=== PATIENT | female | born 1995 | race Caucasian/White ===

== ENCOUNTER → 2019-07-11 | Outpatient (CLI) | payer OTHER ==
[2019-07-11 13:09] LABS: Basophils % (A) 0 %; Eosinophils # (A) 0.1 k/uL (0-0.7); Eosinophils % (A) 1 %; HCT 42.9 % (34.0-46.0); HGB 14.7 gm/dL (11.4-16.0); Lymphocytes # (A) 3.4 k/uL (1.0-4.8); Lymphocytes % (A) 40 %; MCH 32.6 pg (25.0-35.0); MCHC 34.1 g/dL (31.0-37.0); MCV 95.5 fL (80.0-100.0); Mean Platelet Volume 8.5; Monocytes # (A) 0.4 k/uL (0-1.0); Monocytes % (A) 4 %; Neutrophils # (A) 4.5 k/uL (1.3-7.7); Neutrophils % (A) 53 %; Platelet Count 267 k/uL (150-450); RDW 11.7 % (11.5-15.5); WBC 8.6 k/uL (3.8-10.6)
[2019-07-11 18:51] LABS: Chol/HDL Ratio 2.92; LDL Cholesterol,Calculated 98.6 mg/dL (0.0-131.0); VLDL Calculation 16.4 mg/dL (5.00-40.00)
[2019-07-11 18:59] LABS: T4, Free (Free Thyroxine) 1.3 ng/dL (0.80-1.80)
[2019-07-11 20:31] LABS: Hemoglobin A1C 5.3 % (4.0-6.0)
== END | disposition home or self-care (01) ==
LOC: LABWHC1 12:17
PROVIDERS: ATTEND Family Medicine
DX: Z00.00 Encounter for general adult medical examination without abnormal findings (principal); E61.1 Iron deficiency
CPT/HCPCS: 36415; 80061; 83036; 83540; 84439; 84443; 85025

== ENCOUNTER 2020-08-03 09:12 | Outpatient (CLI) | payer OTHER ==
[2020-08-03 10:14] LABS: Appearance,Urine Clear (Clear); Bilirubin,Urine Negative (Negative); Blood,Urine Negative (Negative); Color,Urine Yellow; Glucose,Urine (UA) Negative (Negative); Ketones,Urine Negative (Negative); Leukocyte Esterase,Urine Negative (Negative); Nitrite,Urine Negative (Negative); PH, Urine 6.5 (5.0-8.0); Protein,Urine Trace (Negative); Specific Gravity,Urine 1.022 (1.001-1.035); Urobilinogen,Urine <2.0 mg/dL (<2.0)
[2020-08-03] MEDS: LACTATED RINGERS 1,000 ML IV SCH ×2 (10:16→11:18)
[2020-08-03 10:36] VITALS: BP 124/72; PULSE 111; RESP 18; TEMP 97.7
[2020-08-03] MEDS: TERBUTALINE 1 MG/ML VIAL SQ PRN ×2 (11:19→11:34)
--- NOTE | 2020-09-14 15:17 | P.MSEPDOC ---
Presenting Problems - Arrival Data Date of Arrival on Unit: 08/03/20 Time of Arrival on Unit: 09:12 Mode of Transport: Ambulatory - Complaint OB-Reason for Admission/Chief Complaint: Possible Onset of Labor Medical History - Information : 1 Para: 0 Term: 0 : 0 Abortions: Spontaneous or Elective: 0 Number of Living Children: 0 - Gestational Age Gestational Age by JAROD (wks/days): 32 Weeks and 4 Days Review of Systems - Review of Systems Constitutional: No problems Breast: No problems ENT: No problems Cardiovascular: No problems Respiratory: No problems Gastrointestinal: No problems Genitourinary: No problems Musculoskeletal: No problems Neurological: No problems Skin: No problems Vital Signs - Temperature Temperature: 97.7 F Temperature Source: Oral - Pulse Right Supine Brachial Pulse Rate: 111 Pulse Assessment Method: Automatic Cuff - Respirations Respiratory Rate: 18 Oxygen Delivery Method: Room Air O2 Sat by Pulse Oximetry: 97 - Blood Pressure Right Arm Supine Blood Pressure: 124/72 Blood Pressure Mean: 89 Blood Pressure Source: Automatic Cuff Medical Screen Scoring (Pre) - Cervical Exam Dilation: 1-3 cm = 1 Membranes: Intact - Uterine Contractions Frequency: < 36 weeks = 6 Duration: > 40 seconds = 2 - Maternal Vital Signs Maternal Temperature: N/A Maternal Blood Pressure: N/A Signs of Preeclampsia: N/A Maternal Respirations: N/A - Maternal Trauma Maternal Trauma: N/A - Assessment - Baby A Baseline FHR: 135 Heart Rate - NICHD Category: Category I (Normal) = 0 NST: Reactive Position: N/A - Total Score - Baby A Total Score - Baby A: 9 - Total Score - Baby B Total Score - Baby B: 9 - Total Score - Baby C Total Score - Baby C: 9 - Level of Risk - Baby A Level of Risk - Baby A: Medium (6-9) - Level of Risk - Baby B Level of Risk - Baby B: Medium (6-9) - Level of Risk - Baby C Level of Risk - Baby C: Medium (6-9) Physician Notification (Pre) - Physician Notified Physician Notified Date: 08/03/20 Physician Notified Time: 09:47 New Order Received: Yes - Notification Comment Comment: Dr Arnold in Department, gave orders for FFN, IV bolus and UA. Call with results Medical Screen Scoring (Post) - Cervical Exam Dilation: Exam Deferred Effacement: Exam Deferred Membranes: Intact - Uterine Contractions Frequency: > 5 minutes apart = 1 - Maternal Vital Signs Maternal Temperature: N/A Maternal Blood Pressure: N/A Signs of Preeclampsia: N/A Maternal Respirations: N/A - Maternal Trauma Maternal Trauma: N/A - Assessment - Baby A Heart Rate: 130 Heart Rate - NICHD Category: Category I (Normal) = 0 NST: Reactive - Total Score Total Score - Baby A: 1 Total Score - Baby B: 1 Total Score - Baby C: 1 - Post Treatment Level of Risk Post Treatment Level of Risk - Baby A: Low (0-5) Post Treatment Level of Risk - Baby B: Low (0-5) Post Treatment Level of Risk - Baby C: Low (0-5) Physician Notification (Post) - Physician Notified Physician Notified Date: 08/03/20 Physician Notified Time: 12:00 Physician/Practitioner Notified:: Dr Arnold Spoke With: [place] New Order Received: Yes - Notification Comment Comment: Discharge to home on modified bed rest with pelvic rest and to make appt for thursday with office for follow up if possible Disposition - Disposition OB Disposition: Discharge to home Discharge Date: 08/03/20 Discharge Time: 12:08 I agree with the RN Medical Screening Exam: Yes Physician's MSE Comment: Patient was not examined by myself Case reviewed; plan agreed upon as documented in EMR&OBIX.: Yes Diagnosis: OTHER SPECIFIED COMPLICATIONS OF LABOR AND DELIVERY
== END 2020-08-03 12:00 | disposition home or self-care (01) ==
LOC: FBPOP 09:12
PROVIDERS: ATTEND Obstetrics & Gynecology Obstetrics
DX: O26.893 Other specified pregnancy related conditions, third trimester (principal); Z3A.32 32 weeks gestation of pregnancy
CPT/HCPCS: 59025; 99214; 96360; 96361; 96372; 82731; 81003; J3105

== ENCOUNTER 2020-08-03 16:45 | Outpatient (CLI) | payer OTHER ==
[2020-08-03 18:29] VITALS: BP 123/75; PULSE 88; RESP 16; TEMP 98.6
--- NOTE | 2020-08-03 18:29 | US ---
EXAMINATION TYPE: US OB TV Cervical Measurement DATE OF EXAM: 08/03/2020 COMPARISON: NONE REASON FOR EXAM: Per Ordering Physician?this transvaginal scan is to assess the CERVICAL LENGTH for i ncompetence or funneling. GESTATIONAL AGE / DATING Physician Established: (32 weeks/4 days) EDC: 09/24/2020 MATERNAL/ SURVEY CERVICAL LENGTH (transvaginal: norm> 2.5cm): 1.6 cm Ultrasound evidence of shortened cervix? Yes HEART RATE: 154 bpm RHYTHM: Normal IMPRESSION: 1.6 cm cervical length.
[2020-08-03] MEDS ORDERED: BETAMET ACET-BETAMETH SOD PHOS 6 MG/ML MDV IM SCH (19:45)
[2020-08-03] MEDS ORDERED: MAGNESIUM SULFATE-WATER PMX 4 GM in WATER FOR INJECTION 1 100ML.BAG IVPB ONE (20:01)
[2020-08-03] MEDS ORDERED: MAGNESIUM SULFATE-WATER PMX 20 GM in WATER FOR INJECTION 1 500ML.BAG IV SCH (20:15)
[2020-08-03] MEDS ORDERED: LACTATED RINGERS 1,000 ML IV SCH (20:15)
--- NOTE | 2020-08-03 20:26 | P.HPOB ---
History of Present Illness H&P Date: 08/03/20 Chief Complaint: Contractions This is a 24-year-old 1 para 0 woman with an estimated due date of 09/24/2020 based on LMP consistent with first trimester ultrasound. She presents at 32-4/7 weeks' gestation with complaints of contractions. This initially began at approximately 3 AM. She presented to labor and delivery triage at approximately 9 AM this morning. She was found to be irregularly nasrin and her cervix was reported as 1 cm dilated and thick. She had IV fluids, terbutaline and a negative fibronectin test. Her contractions did decrease and she was discharged home for follow-up. She reports presented several hours later with ongoing and worsening contractions. Upon initial evaluation this afternoon her cervix remained unchanged however she was nasrin every 2-5 minutes uncomfortably. Oral hydration was initiated and she underwent a cervical length ultrasound which revealed cervix measuring 1.6 cm. Infant in the non-vertex presentation. She did make cervical change to 2 cm dilated, 100% effaced with a bulging lower segment. No presenting part. She was initiated on magnesium sulfate tocolyse this and given an initial dose of betamethasone. Arrangements are made for transport to higher level of nursery care. External monitoring reveals reassuring heart rate pattern for gestational age. She is irregularly nasrin within the ear herbal pattern approximately every 3-10 minutes. She denies any leakage of fluids, vaginal bleeding, nausea, vomiting, fevers, chills, headaches, visual changes, constipation or diarrhea. She has not had recent intercourse or trauma of any kind. Review of the patient's online (no hard copy available) record shows blood type A+, antibody screen negative, rubella immune, VDRL nonreactive, hepatitis B surface antigen negative, HIV negative, gonorrhea and chlamydia cultures negative, 1 hour GTT 125. She received a Tdap Vaccine on 07/12/2020. Review of Systems All systems: negative Past Medical History Past Medical History: No Reported History History of Any Multi-Drug Resistant Organisms: None Reported Additional Past Surgical History / Comment(s): Tonsils and adenoidectomy, with some teeth removal Past Anesthesia/Blood Transfusion Reactions: No Reported Reaction Past Psychological History: No Psychological Hx Reported Smoking Status: Never smoker Past Drug Use History: None Reported Medications and Allergies Home Medications Medication Instructions Recorded Confirmed Type Ascorbic Acid [Vitamin C] 500 mg PO DAILY 08/03/20 08/03/20 History L.acidoph,Paracasei, B.lactis 1 each PO DAILY 08/03/20 08/03/20 History [Probiotic] Methylphenidate HCl [Concerta] 54 mg PO DAILY 08/03/20 08/03/20 History Omeprazole 20 mg PO DAILY 08/03/20 08/03/20 History Pnv No.95/Ferrous Fum/Folic AC 1 each PO DAILY 08/03/20 08/03/20 History [ Multivitamin Tablet] Allergies Allergy/AdvReac Type Severity Reaction Status Date / Time No Known Allergies Allergy Verified 08/03/20 17:20 Exam Vital Signs Temp Pulse Resp BP 08/03/20 17:00 98.6 F 88 16 123/75 Intake and Output 08/03/20 08/03/20 08/03/20 06:59 14:59 22:59 Other: Weight 92.079 kg This is a pleasant, somewhat uncomfortable-appearing female in no acute distress. HEENT exam is unremarkable with no palpable lymphadenopathy or thyromegaly. The heart is a regular rate and rhythm and the lungs are clear to auscultation bilaterally. The abdomen is gravid, soft and nontender with fundal height consistent with gestational age. She has no CVA tenderness. She has trace lower extremity edema with no erythema the lower extremities. On pelvic examination the cervix is 2 cm dilated 100% effaced with bulging low uterine segment intense membranes. No presenting part is palpable. Bedside ultrasound transvaginal reveals non-vertex presentation and a cervical length of 1.6 cm. Assessment and Plan (1) 32 weeks gestation of Current Visit: Yes Status: Acute Code(s): Z3A.32 - 32 WEEKS GESTATION OF SNOMED Code(s): 7344839 (2) labor Current Visit: Yes Status: Acute Code(s): O60.00 - LABOR WITHOUT DELIVERY, UNSPECIFIED TRIMESTER SNOMED Code(s): 2038101 (3) Breech presentation Current Visit: Yes Status: Acute Code(s): O32.1XX0 - MATERNAL CARE FOR BREEC H PRESENTATION, UNSP SNOMED Code(s): 7341715 (4) Short cervix Current Visit: Yes Status: Acute Code(s): N88.3 - INCOMPETENCE OF CERVIX UTERI SNOMED Code(s): 665566253 Plan: 24-year-old 1 para 0 woman at 32-4/7 weeks' gestation with labor. She's been initiated on 4 g loading dose of magnesium sulfate with 2 g maintenance dose. She has received her first dose of betamethasone. The case is discussed with the maternal medicine attending physician at [place], [place]. They are accepting the transfer, . The patient and the father of the baby were counseled. Risks of transfer include possible progression of labor while in transport although I believe she is stable for transfer. Risks of remaining here level II nursery care and need for emergent transfer of the . Consent is obtained for transport and arrangements made. CBC is pending from lab and will be sent to the accepting facility. Hard copy of records will be forwarded when available to accepting facility.
[2020-08-03 20:31] LABS: Basophils # (A) 0.1 k/uL (0-0.2); Basophils % (A) 0 %; Eosinophils % (A) 0 %; HCT 38.8 % (34.0-46.0); HGB 13.4 gm/dL (11.4-16.0); Lymphocytes # (A) 1.3 k/uL (1.0-4.8); Lymphocytes % (A) 8 %; MCH 31.6 pg (25.0-35.0); MCHC 34.6 g/dL (31.0-37.0); MCV 91.4 fL (80.0-100.0); Mean Platelet Volume 9.3; Monocytes # (A) 0.5 k/uL (0-1.0); Monocytes % (A) 3 %; Neutrophils # (A) 14.4 k/uL (1.3-7.7); Neutrophils % (A) 88 %; Platelet Count 193 k/uL (150-450); RBC 4.24 m/uL (3.80-5.40); RDW 12.7 % (11.5-15.5); WBC 16.4 k/uL (3.8-10.6)
== END 2020-08-03 20:49 | disposition short-term general hospital (02) ==
LOC: FBPOP 16:45
PROVIDERS: ATTEND Obstetrics & Gynecology
DX: O60.03 Preterm labor without delivery, third trimester (principal); Z3A.32 32 weeks gestation of pregnancy; Z79.899 Other long term (current) drug therapy; O32.1XX0 Maternal care for breech presentation, not applicable or unspecified
CPT/HCPCS: 99215; 59025; 96376; 96365; 96367; 96372; 86900; 86901; 85025; 86850; 76817; J3475 ×2; J0702

== ENCOUNTER → 2024-07-28 | Outpatient (CLI) | payer OTHER ==
--- NOTE | 2024-07-28 14:44 | US ---
EXAMINATION TYPE: US transvaginal DATE OF EXAM: 07/28/2024 COMPARISON: NONE CLINICAL INDICATION: Female, 28 years old with history of N94.5 SECONDARY DYSMENORRHEA; Pain TECHNIQUE: Transvaginal (TV). Transvaginal sonographic images were medically necessary to better assess the following anatomy: Doppler imaging: Not performed. FINDINGS: EXAM MEASUREMENTS: Uterus: 7.8 x 4.3 x 6.6 cm Endometrial Stripe: .3 cm Right Ovary: 3.3 x 1.8 x 1.5 cm Left Ovary: 3.1 x 2.4 x 2.7 cm 1. Uterus: Retroverted wnl 2. Endometrium: wnl 3. Right Ovary: wnl 4. Left Ovary: wnl 5. Bilateral Adnexa: wnl 6. Posterior cul-de-sac: wnl IMPRESSION: Unremarkable study. [facility], , 07/28/2024 2:42 PM
== END | disposition home or self-care (01) ==
LOC: RADUSWWP 13:09
PROVIDERS: ATTEND Specialist
DX: N94.5 Secondary dysmenorrhea (principal)
CPT/HCPCS: 76830